=== PATIENT | female | born 1955 | race Caucasian/White ===

== ENCOUNTER 2021-02-20 11:44 | Emergency (ER) | payer MEDICARE, OTHER, MEDICAID ==
[2021-02-20 11:55] VITALS: BP 134/89
--- NOTE | 2021-02-20 12:31 | ED Physician Documentation ---
History of Present Illness - Stated complaint Stated Complaint: LOWER BACK/LEG PX - Chief complaint Chief Complaint: Back Pain - Additonal information Additional information: 66-year-old female presents to the emergency department because she is worried that she is going to lose the ability to move her legs. She reports that in about mid December that she got the stomach flu 1 night and vomited forcefully many times. The next morning when she woke up that she had severe burning pain in her lower back. This pain did not improve despite physical therapy and chiropractor. She did see her primary care doctor Dr. Chau and underwent and MRI on February 06 of her lumbar spine. It does show disc bulge between L3 and S1. There was no high-grade canal stenosis. There is mild narrowing of the lateral recesses bilaterally. However due to progressive numbness in her legs her doctor's office on 11 February made a referral to neurosurgery at [facility]. She has not yet received a call back from the office. Patient reports a persistent bladder leak that is not new. She often wakes up incontinent of urine in the mornings. She denies saddle anesthesia. Patient is nervous and scared. Lives alone on the [place] and denies that she has resources to help her here. She is afraid that she would be unable to make the drive to [place] where the neurosurgery office is located. Review of Systems Constitutional: denies: Fever, Chills, Weight Loss Eyes: reports: Loss of vision Ears: reports: Reviewed and negative Nose: reports: Reviewed and negative Throat: reports: Reviewed and negative Cardiac: reports: Reviewed and negative Respiratory: reports: Reviewed and negative GI: denies: Abdominal Pain, Nausea, Vomiting : reports: Incontinent. denies: Dysuria, Frequency, Hesitancy Musculoskeletal: reports: Back pain Neurologic: reports: Numbness (BLE, especially feet) Psychiatric: reports: Reviewed and negative PD PAST MEDICAL HISTORY - Past Medical History Past Medical History: Yes Cardiovascular: None Respiratory: None Neuro: Migraines Endocrine/Autoimmune: None GI: [employer]: None : None HEENT: Chronic vision loss Psych: None Musculoskeletal: Chronic back pain Derm: None - Past Surgical History Past Surgical History: No - Allergies Allergies/Adverse Reactions: Allergies Allergy/AdvReac Type Severity Reaction Status Date / Time azithromycin Allergy Rash Verified 02/20/21 11:55 - Social History Does the pt smoke?: No Smoking Status: Never smoker Does the pt drink ETOH?: No Does the pt have substance abuse?: No - Immunizations Immunizations are current?: Yes - POLST Patient has POLST: No PD ED PE EXPANDED - General General: Alert, No acute distress - Cardiac Cardiac: Regular Rate, Radial strong equal, Pedal strong equal - Respiratory Respiratory: Clear to ausultation christy. No: Distress, Labored - Abdomen Abdomen: Normal Bowel sounds. No: Tender to palpation - Rectal Rectal: Normal Tone - Back Back: Normal exam, Soft tissue tenderness (diffuse low back lumbar tenderss. no swelling, ecchymosis. Motor strength 4/5 BLE. 2+ patella reflexes bilateral. subjective numbess lower legs laterally below knees. pt ambulates without assistance with cane). No: Vertebral tenderness - Extremities Extremities: Normal. No: Deformity, Tenderness, Pedal edema bilateral - Neuro Neuro: Alert and Oriented X 3, CNII-XII intact, Normal finger nose, Normal speech. No: Normal gait (using cane) - GCS Eye Opening: Spontaneous Motor: Obeys Commands Verbal: Oriented Total: 15 Results - Vitals Vitals: Vital Signs - 24 hr 02/20/21 11:50 Temperature 36.4 C L Heart Rate 88 Respiratory 18 Rate Blood Pressure 134/89 H O2 Saturation 99 Oxygen O2 Source Room air PD MEDICAL DECISION MAKING - ED course Complexity details: reviewed results, re-evaluated patient, d/w patient ED course: 66-year-old female presents emergency department for evaluation of worsening low back pain and now numbness in both her legs. She does not have saddle anesthesia. She does report some incontinence of urine but that is not new. Her rectal tone was normal on exam. I did order a bladder scan pre and post void but the patient declined to that. She brought in possession with her an MRI that shows disc bulge between L3 and S1 without high grade canal stenosis. Her primary doctor made a referral to [facility] orthopedics. While here in the emergency department the [facility] called that office however they told her that she was unable to be seen therefore back problems. She did request her primary care doctor make a new referral to a neurosurgeon. Though the numbness in the legs is worrisome, she does not have weakness fever or saddle anesthesia. Patient is discharged home ambulatory with a cane. Emergent return precautions were discussed for worsening symptoms. Departure - Departure Disposition: 01 Home, Self Care Clinical Impression: Lumbar disc disease with radiculopathy, Bilateral leg numbness Condition: Stable Record reviewed to determine appropriate education?: Yes Comments: Gissel it is important that you continue to follow-up with the neurosurgeon. Please call Dr. Chau's office this afternoon for the new referral to a new neurosurgeon. I am sorry That [facility] orthopedics cannot meet your needs. It is important however that you continue to aggressively try and follow-up with neurosurgery. If at any point you become incontinent of stool or urine, have numbness in your genital area or are unable to ambulate you do need to return immediately to the emergency department. Because you are considering getting surgery in the [facility] area where your family lives you may want to ask Dr. Chau for your referral to neurosurgery in that area.
== END 2021-02-20 13:23 | disposition home or self-care (01) ==
LOC: ED 11:44
DX: M51.17 Intervertebral disc disorders with radiculopathy, lumbosacral region (principal); R20.0 Anesthesia of skin; R32 Unspecified urinary incontinence
CPT/HCPCS: 99281; 99284